=== PATIENT | female | born 1960 | race Caucasian/White ===

== ENCOUNTER 2022-06-07 20:26 | Emergency (ER) | payer MEDICAID ==
[~2022-06-07] VITALS: Ht 154.9 cm; Wt 55.0 kg
[2022-06-07] MEDS ORDERED: KETOROLAC 30MG/ML VIAL IV STA (21:53)
[2022-06-07] MEDS ORDERED: ONDANSETRON HCL 4MG/2ML INJ IV STA (21:53)
[2022-06-07 22:50] LABS: BASOPHILS % 1.3 % (0.0-2.0); EOSINOPHILS % 1.7 % (0.0-5.0); HEMATOCRIT. 25.9 % (36.0-48.0); HEMOGLOBIN. 8.9 g/dL (12.0-16.0); LYMPHOCYTES % 22.1 % (20.0-50.0); MEAN CORPUSCULAR VOLUME 93.4 fL (81.0-99.0); MEAN PLATELET VOLUME 9.5 fl (7.4-10.4); NEUTROPHILS % 67.9 % (40.0-76.0); PLATELET 492 x1000/uL (130-400); RED BLOOD CELL COUNT 2.78 mill/uL (4.2-5.4); RED CELL DISTRIBUTION WIDTH 13.8 % (11.6-14.6)
[2022-06-07 22:59] LABS: INR 0.9; PROTHROMBIN TIME 10.2 sec (9.6-11.0)
[2022-06-07 23:11] LABS: CHLORIDE 103 mEq/L (98-107)
[2022-06-08] MEDS ORDERED: PIPERACILLIN/TAZOBACTAM 3.375GM/50ML PREMIX IV NR (04:15)
[2022-06-08] MEDS ORDERED: ONDA4TAB50 MT (04:24)
[2022-06-08] MEDS ORDERED: CEPH500C2 MT (04:24)
[2022-06-08] MEDS ORDERED: IOHEXOL-300 100 ML BOTTLE ONE (06:02)
[2022-06-08 06:15] VITALS: BP 131/72
== END 2022-06-08 06:42 | disposition home or self-care (01) ==
LOC: ER 20:26
DX: R10.31 Right lower quadrant pain (principal); R11.2 Nausea with vomiting, unspecified; E11.9 Type 2 diabetes mellitus without complications; E78.00 Pure hypercholesterolemia, unspecified; I10 Essential (primary) hypertension
CPT/HCPCS: 36415; 74177; 80053; 83690; 85025; 85610; 96365; 96375; 99285; J1885; J2405; J2543; Q9967

== ENCOUNTER 2023-02-01 10:56 | Inpatient (IN) | payer MEDICAID ==
[~2023-02-01] VITALS: Ht 152.4 cm; Wt 60.1 kg
[~2023-02-01 10:56] MED LIST: CEPH500C2 MT; ONDA4TAB50 MT
[2023-02-01 11:52] LABS: HEMATOCRIT. 29.8 % (36.0-48.0); HEMOGLOBIN. 9.9 g/dL (12.0-16.0); MEAN CORPUSCULAR HEMOGLOBIN 31.6 pg (28.0-32.0); MEAN CORPUSCULAR HGB CONC 33.3 g/dL (31.0-37.0); MEAN CORPUSCULAR VOLUME 94.8 fL (81.0-99.0); MEAN PLATELET VOLUME 9.7 fl (7.4-10.4); PLATELET 269 x1000/uL (130-400); RED BLOOD CELL COUNT 3.15 mill/uL (4.2-5.4); RED CELL DISTRIBUTION WIDTH 12.7 % (11.6-14.6); WHITE BLOOD COUNT 15.5 x1000/uL (4.5-11.0)
[2023-02-01 11:54] LABS: DIFFERENTIAL COMMENT 1
[2023-02-01 12:08] LABS: CLARITY URINE CLOUDY (CLEAR); COLOR URINE YELLOW (YELLOW); GLUCOSE URINE 3+ (NEGATIVE); KETONES URINE NEGATIVE (NEGATIVE); LEUKOCYTE ESTERASE URINE 1+ (NEGATIVE); NITRITE URINE NEGATIVE (NEGATIVE); OCCULT BLOOD URINE NEGATIVE (NEGATIVE); PROTEIN URINE 3+ (NEGATIVE); SPECIFIC GRAVITY URINE 1.018 (1.005-1.030); UROBILINOGEN URINE 0.2 E.U./dL (0.2-1.0)
[2023-02-01 12:30] LABS: ALBUMIN 3.2 g/dL (3.4-5.0); CALCIUM 9.3 mg/dL (8.5-10.1); CARBON DIOXIDE 19 mEq/L (21-32); CHLORIDE 108 mEq/L (98-107); GLUCOSE 109 mg/dL (70-105); INDEX HEMOLYSI 1 (1-3); INDEX ICTERIC 1 (1-4); INDEX LIPEMIC 1 (1-3); POTASSIUM 4.8 mEq/L (3.5-5.1); SODIUM 137 mEq/L (136-145); UREA NITROGEN BLOOD 56 mg/dL (7-21)
[2023-02-01 12:31] LABS: SQUAMOUS EPITHELIAL CELL URINE FEW /lpf (RARE/1+)
[2023-02-01 12:32] LABS: RBC URINE 0-2 /hpf (0-2)
[2023-02-01 12:33] LABS: BACTERIA URINE TRACE
[2023-02-01 12:35] LABS: ALANINE AMINOTRANSFERASE 14 IU/L (13-61); ASPARTATE AMINOTRANSFERASE 13 IU/L (15-37); BILIRUBIN TOTAL 0.5 mg/dL (0.1-1.0); CREATININE 2.6 mg/dL (0.6-1.3); PROTEIN TOTAL 7.6 g/dL (6.0-8.3)
[2023-02-01] MEDS ORDERED: ONDANSETRON HCL 4MG/2ML INJ IV STA (12:49)
[2023-02-01] MEDS ORDERED: MORPHINE SULFATE 4 MG/ML CPJ (NOT FOR IM USE) IV STA (12:49)
[2023-02-01] MEDS ORDERED: SODIUM CHLORIDE 0.9% 1,000 ML IV ONE (13:00)
[2023-02-01 14:14] LABS: PLATELET ESTIMATE NORMAL
[2023-02-01] MEDS ORDERED: PIPERACILLIN/TAZ 3.375G PREMIX 50 ML IV ONE (15:00)
[2023-02-01 22:00] VITALS: BP 95/54; PULSE 89; RESP 19; TEMP 97.2
[2023-02-01] MEDS ORDERED: ATOR40TA70 MT (23:00)
[2023-02-01] MEDS ORDERED: AMLO10TA80 MT (23:00)
[2023-02-01] MEDS ORDERED: LISI40TA13 MT (23:00)
[2023-02-01] MEDS ORDERED: METF-416 MT (23:00)
[2023-02-01] MEDS ORDERED: GABA-580 PO (23:00)
[2023-02-01] MEDS ORDERED: FOLI-43 MT (23:01)
[2023-02-01] MEDS ORDERED: TOPUD MT (23:01)
[2023-02-01] MEDS ORDERED: ONDANSETRON HCL 4MG/2ML INJ IV PRN (23:30)
[2023-02-01] MEDS ORDERED: NALOXONE HCL 0.4MG/ML VIAL IV PRN (23:30)
[2023-02-02] VITALS (7 sets, daily range): BP systolic 90–125; BP diastolic 41–58; PULSE 83–95; RESP 18–22; TEMP 97.4–98.6
[2023-02-02] MEDS: MORPHINE SULFATE 2 MG/ML CPJ (NOT FOR IM USE) IV PRN ×3 (00:14→13:31)
[2023-02-02] MEDS: INSULIN LISPRO 100 UNITS/ML SUBCUT SCH ×5 (00:30→23:34)
[2023-02-02] MEDS: BLOOD SUGAR DIAGNOSTIC STRIP TEST SCH ×5 (00:30→23:34)
[2023-02-02] MEDS: SODIUM CHLORIDE 0.9% 1,000 ML IV SCH ×3 (00:30→20:27)
[2023-02-02] MEDS ORDERED: DEXTROSE 50% WATER 50ML SYRINGE IV PRN (00:30)
[2023-02-02 06:56] LABS: HEMATOCRIT 27.2 % (36.0-48.0); MEAN CORPUSCULAR HEMOGLOBIN 31.4 pg (28.0-32.0); MEAN CORPUSCULAR HGB CONC 33.2 g/dL (31.0-37.0); MEAN CORPUSCULAR VOLUME 94.4 fL (81.0-99.0); PLATELET 153 x1000/uL (130-400); RED BLOOD CELL COUNT 2.88 mill/uL (4.2-5.4); WHITE BLOOD COUNT 17.9 x1000/uL (4.5-11.0)
[2023-02-02 07:13] LABS: CHLORIDE 107 mEq/L (98-107); INDEX HEMOLYSI 1 (1-3); INDEX ICTERIC 1 (1-4); INDEX LIPEMIC 1 (1-3); POTASSIUM 4.8 mEq/L (3.5-5.1); SODIUM 138 mEq/L (136-145)
[2023-02-02 07:28] LABS: ALANINE AMINOTRANSFERASE 32 IU/L (13-61); ALBUMIN 2.4 g/dL (3.4-5.0); AMYLASE 31 IU/L (25-115); ASPARTATE AMINOTRANSFERASE 39 IU/L (15-37); BILIRUBIN TOTAL 0.5 mg/dL (0.1-1.0); CALCIUM 8.3 mg/dL (8.5-10.1); CARBON DIOXIDE 16 mEq/L (21-32); CREATININE 3.5 mg/dL (0.6-1.3); GLUCOSE 163 mg/dL (70-105); PROTEIN TOTAL 6.1 g/dL (6.0-8.3); UREA NITROGEN BLOOD 76 mg/dL (7-21)
[2023-02-02] MEDS ORDERED: BLOOD SUGAR DIAGNOSTIC STRIP TEST SCH (07:40)
[2023-02-02] MEDS ORDERED: INSULIN LISPRO 100 UNITS/ML SUBCUT SCH (08:10)
[2023-02-02] MEDS: PANTOPRAZOLE SODIUM 40 MG/VIAL IV SCH (09:30)
[2023-02-02] MEDS: PIPERACILLIN/TAZOBACTAM 3.375 G in DEXTROSE 5% WATER 50 ML IV SCH ×2 (09:30→20:26)
[2023-02-02 13:26] LABS: INR 0.9; PARTIAL THROMBOPLASTIN TIME 31.5 sec (23.4-31.0); PROTHROMBIN TIME 9.8 sec (9.6-11.0)
[2023-02-02] MEDS ORDERED: HYDROCODONE/ACETAMINOPHEN 5/325MG TABLET PO PRN (13:30)
[2023-02-03] VITALS (15 sets, daily range): BP systolic 115–186; BP diastolic 52–107; PULSE 80–92; RESP 12–20; TEMP 97.7–100
[2023-02-03] MEDS: MORPHINE SULFATE 2 MG/ML CPJ (NOT FOR IM USE) IV PRN ×2 (03:09→07:18)
[2023-02-03] MEDS: BLOOD SUGAR DIAGNOSTIC STRIP TEST SCH ×3 (05:36→17:43)
[2023-02-03] MEDS: INSULIN LISPRO 100 UNITS/ML SUBCUT SCH ×3 (05:36→17:42)
[2023-02-03] MEDS: SODIUM CHLORIDE 0.9% 1,000 ML IV SCH ×2 (05:36→16:31)
[2023-02-03] MEDS: PIPERACILLIN/TAZOBACTAM 3.375 G in DEXTROSE 5% WATER 50 ML IV SCH ×2 (08:29→22:49)
[2023-02-03] MEDS: PANTOPRAZOLE SODIUM 40 MG/VIAL IV SCH (08:29)
[2023-02-03 08:33] LABS: POTASSIUM 4.5 mEq/L (3.5-5.1)
[2023-02-03] MEDS ORDERED: LIDOCAINE HCL 1% 10 MG/ML 10ML VIAL ONE (08:44)
[2023-02-03] MEDS ORDERED: IOHEXOL-300 50 ML BOTTLE IV ONE (08:44)
[2023-02-03] MEDS ORDERED: FENTANYL CITRATE/PF 50MCG/ML 2ML VIAL IV ONE (09:20)
[2023-02-03] MEDS ORDERED: FENTANYL CITRATE/PF 50MCG/ML 2ML VIAL ONE (09:28)
[2023-02-03 09:29] LABS: BASOPHILS % 0.6 % (0.0-2.0); EOSINOPHILS % 3.6 % (0.0-5.0); HEMATOCRIT. 26.8 % (36.0-48.0); HEMOGLOBIN. 8.7 g/dL (12.0-16.0); LYMPHOCYTES % 9.4 % (20.0-50.0); MEAN CORPUSCULAR HEMOGLOBIN 31.2 pg (28.0-32.0); MEAN CORPUSCULAR HGB CONC 32.3 g/dL (31.0-37.0); MEAN CORPUSCULAR VOLUME 96.6 fL (81.0-99.0); MONOCYTES % 4.7 % (2.0-8.0); NEUTROPHILS % 81.7 % (40.0-76.0); PLATELET 109 x1000/uL (130-400); RED BLOOD CELL COUNT 2.78 mill/uL (4.2-5.4); RED CELL DISTRIBUTION WIDTH 13.7 % (11.6-14.6); WHITE BLOOD COUNT 11.6 x1000/uL (4.5-11.0)
[2023-02-04] VITALS: BP 126/55; PULSE 86; RESP 19; TEMP 98.1
[2023-02-04] MEDS: INSULIN LISPRO 100 UNITS/ML SUBCUT SCH ×4 (00:30→17:45)
[2023-02-04] MEDS: BLOOD SUGAR DIAGNOSTIC STRIP TEST SCH ×4 (00:54→17:45)
[2023-02-04 02:00] VITALS: BP 126/58; PULSE 79; RESP 18; TEMP 97.8
[2023-02-04] MEDS: SODIUM CHLORIDE 0.9% 1,000 ML IV SCH ×3 (02:45→21:50)
[2023-02-04 06:41] LABS: BASOPHILS % 0.8 % (0.0-2.0); EOSINOPHILS % 5.7 % (0.0-5.0); HEMATOCRIT. 22.9 % (36.0-48.0); HEMOGLOBIN. 7.7 g/dL (12.0-16.0); LYMPHOCYTES % 10.9 % (20.0-50.0); MEAN CORPUSCULAR HGB CONC 33.9 g/dL (31.0-37.0); MEAN CORPUSCULAR VOLUME 94.6 fL (81.0-99.0); MEAN PLATELET VOLUME 9.4 fl (7.4-10.4); MONOCYTES % 6.3 % (2.0-8.0); NEUTROPHILS % 76.3 % (40.0-76.0); PLATELET 104 x1000/uL (130-400); RED BLOOD CELL COUNT 2.42 mill/uL (4.2-5.4); RED CELL DISTRIBUTION WIDTH 12.6 % (11.6-14.6); WHITE BLOOD COUNT 8.9 x1000/uL (4.5-11.0)
[2023-02-04 08:00] VITALS: BP 152/68; PULSE 84; RESP 18; TEMP 98
[2023-02-04 08:26] LABS: CHLORIDE 114 mEq/L (98-107); INDEX HEMOLYSI 1 (1-3); INDEX ICTERIC 1 (1-4); INDEX LIPEMIC 1 (1-3); POTASSIUM 4.1 mEq/L (3.5-5.1); SODIUM 139 mEq/L (136-145)
[2023-02-04 08:33] LABS: ALANINE AMINOTRANSFERASE 21 IU/L (13-61); ASPARTATE AMINOTRANSFERASE 27 IU/L (15-37); BILIRUBIN TOTAL 0.4 mg/dL (0.1-1.0); CARBON DIOXIDE 17 mEq/L (21-32); CREATINE KINASE 87 IU/L (26-192); CREATININE 3.6 mg/dL (0.6-1.3); GLUCOSE 87 mg/dL (70-105); PHOSPHORUS 5.3 mg/dL (2.5-4.9); PROTEIN TOTAL 5.8 g/dL (6.0-8.3); UREA NITROGEN BLOOD 65 mg/dL (7-21)
[2023-02-04] MEDS: PIPERACILLIN/TAZOBACTAM 3.375 G in DEXTROSE 5% WATER 50 ML IV SCH ×2 (08:50→21:31)
[2023-02-04] MEDS: PANTOPRAZOLE SODIUM 40 MG/VIAL IV SCH (08:50)
[2023-02-04 12:00] VITALS: BP 151/62; PULSE 74; RESP 20; TEMP 97.7
[2023-02-04 16:00] VITALS: BP 154/64; PULSE 79; RESP 18; TEMP 98
[2023-02-04] MEDS: MORPHINE SULFATE 2 MG/ML CPJ (NOT FOR IM USE) IV PRN (16:27)
[2023-02-04] MEDS: DOCUSATE SODIUM 250MG CAPSULE PO SCH (19:15)
[2023-02-04 20:00] VITALS: BP 150/66; PULSE 78; RESP 18; TEMP 98.1
[2023-02-05] VITALS: BP 161/76; PULSE 83; RESP 18; TEMP 98.9
[2023-02-05] MEDS: INSULIN LISPRO 100 UNITS/ML SUBCUT SCH ×2 (00:30→06:30)
[2023-02-05] MEDS: BLOOD SUGAR DIAGNOSTIC STRIP TEST SCH ×2 (00:30→06:30)
[2023-02-05 04:00] VITALS: BP 166/74; PULSE 80; RESP 18; TEMP 98.4
[2023-02-05 06:53] LABS: EOSINOPHILS % 7.2 % (0.0-5.0); HEMATOCRIT. 24.8 % (36.0-48.0); HEMOGLOBIN. 8.4 g/dL (12.0-16.0); LYMPHOCYTES % 12.5 % (20.0-50.0); MEAN CORPUSCULAR HEMOGLOBIN 31.8 pg (28.0-32.0); MEAN CORPUSCULAR HGB CONC 33.9 g/dL (31.0-37.0); MEAN PLATELET VOLUME 9.6 fl (7.4-10.4); NEUTROPHILS % 72.3 % (40.0-76.0); PLATELET 117 x1000/uL (130-400); RED BLOOD CELL COUNT 2.64 mill/uL (4.2-5.4); RED CELL DISTRIBUTION WIDTH 12.8 % (11.6-14.6); WHITE BLOOD COUNT 8.6 x1000/uL (4.5-11.0)
[2023-02-05 07:54] LABS: CHLORIDE 113 mEq/L (98-107); INDEX HEMOLYSI 1 (1-3); INDEX ICTERIC 1 (1-4); INDEX LIPEMIC 1 (1-3); SODIUM 137 mEq/L (136-145)
[2023-02-05 08:00] VITALS: BP 159/64; PULSE 83; RESP 18; TEMP 97.2
[2023-02-05 08:09] LABS: ALANINE AMINOTRANSFERASE 17 IU/L (13-61); ALBUMIN 2.1 g/dL (3.4-5.0); ASPARTATE AMINOTRANSFERASE 23 IU/L (15-37); BILIRUBIN TOTAL 0.6 mg/dL (0.1-1.0); CALCIUM 7.7 mg/dL (8.5-10.1); CARBON DIOXIDE 17 mEq/L (21-32); CREATININE 2.9 mg/dL (0.6-1.3); GLUCOSE 78 mg/dL (70-105); PHOSPHORUS 4.1 mg/dL (2.5-4.9); PROTEIN TOTAL 6.2 g/dL (6.0-8.3); UREA NITROGEN BLOOD 50 mg/dL (7-21)
[2023-02-05] MEDS: DOCUSATE SODIUM 250MG CAPSULE PO SCH (09:00)
[2023-02-05] MEDS: PIPERACILLIN/TAZOBACTAM 3.375 G in DEXTROSE 5% WATER 50 ML IV SCH (09:30)
[2023-02-05] MEDS: PANTOPRAZOLE SODIUM 40 MG/VIAL IV SCH (09:30)
[2023-02-05] MEDS: SODIUM CHLORIDE 0.9% 1,000 ML IV SCH (09:40)
[2023-02-05] MEDS ORDERED: LEVO250T74 MT (11:14)
[2023-02-05] MEDS ORDERED: LACTULOSE 20G/30ML UDC PO NR (11:30)
[2023-02-05 12:00] VITALS: BP 149/65; PULSE 80; RESP 18; TEMP 97.6
[2023-02-05 14:35] VITALS: BP 141/64; PULSE 83; TEMP 97.9; O2SAT 100
== END 2023-02-05 15:30 | disposition home or self-care (01) | DRG 720 ==
LOC: ER 10:56 → 7WST 23:16
PROVIDERS: ADMIT Internal Medicine; ATTEND Internal Medicine
DX: A41.9 Sepsis, unspecified organism (principal); N17.0 Acute kidney failure with tubular necrosis; E87.20 Acidosis, unspecified; K80.00 Calculus of gallbladder with acute cholecystitis without obstruction; E44.1 Mild protein-calorie malnutrition; D69.6 Thrombocytopenia, unspecified; R65.20 Severe sepsis without septic shock; E11.9 Type 2 diabetes mellitus without complications; D64.9 Anemia, unspecified; I12.9 Hypertensive chronic kidney disease with stage 1 through stage 4 chronic kidney disease, or unspecified chronic kidney disease; N18.9 Chronic kidney disease, unspecified; Z86.73 Personal history of transient ischemic attack (TIA), and cerebral infarction without residual deficits; E11.22 Type 2 diabetes mellitus with diabetic chronic kidney disease; E78.00 Pure hypercholesterolemia, unspecified; Z82.49 Family history of ischemic heart disease and other diseases of the circulatory system; Z68.25 Body mass index [BMI] 25.0-25.9, adult
CPT/HCPCS: 36415; 47490; 71045; 74176; 76705; 80048; 80053; 81003; 82150; 82550; 82570; 82962; 83036; 83735; 84100; 84156; 85025; 85027; 93005; 97162; 97530; 99152; 99153; 99285; C1729; C1769; C9113; J2270; J2405; J2543; J3010; J3490; J7030; J7060; Q9967; A4315; G0500

== ENCOUNTER 2023-05-10 11:36 | Emergency (ER) | payer OTHER ==
[~2023-05-10] VITALS: Ht 152.4 cm; Wt 57.0 kg
[~2023-05-10 11:36] MED LIST changes: +AMLO10TA80 MT; +ATOR40TA70 MT; -CEPH500C2 MT; +FOLI-43 MT; +GABA-580 PO; +HYDR-4001 MT; +LEVO-65 MT; +LISI40TA13 MT; -ONDA4TAB50 MT; +TOPUD MT; +TRAM50TA3 MT
[2023-05-10 11:47] VITALS: TEMP 97.9; O2SAT 100
[2023-05-10 12:44] LABS: BASOPHILS % 1.1 % (0.0-2.0); EOSINOPHILS % 4.9 % (0.0-5.0); HEMATOCRIT. 31.6 % (36.0-48.0); HEMOGLOBIN. 10.4 g/dL (12.0-16.0); LYMPHOCYTES % 24.2 % (20.0-50.0); MEAN CORPUSCULAR HEMOGLOBIN 32.1 pg (28.0-32.0); MEAN CORPUSCULAR HGB CONC 32.9 g/dL (31.0-37.0); MEAN CORPUSCULAR VOLUME 97.6 fL (81.0-99.0); MEAN PLATELET VOLUME 9.1 fl (7.4-10.4); MONOCYTES % 5.8 % (2.0-8.0); PLATELET 283 x1000/uL (130-400); RED BLOOD CELL COUNT 3.24 mill/uL (4.2-5.4); RED CELL DISTRIBUTION WIDTH 13.9 % (11.6-14.6); WHITE BLOOD COUNT 8.2 x1000/uL (4.5-11.0)
[2023-05-10 13:13] LABS: ALANINE AMINOTRANSFERASE < 7 IU/L (10-49); ALBUMIN 4.3 g/dL (3.2-4.8); ASPARTATE AMINOTRANSFERASE 15 IU/L (<34); BILIRUBIN TOTAL 0.4 mg/dL (0.1-1.0); CALCIUM 9.5 mg/dL (8.7-10.4); CARBON DIOXIDE 23 mEq/L (21-32); CHLORIDE 106 mEq/L (98-107); CREATININE 2.1 mg/dL (0.6-1.0); GLUCOSE 186 mg/dL (70-105); POTASSIUM 4.3 mEq/L (3.5-5.1); PROTEIN TOTAL 7.1 g/dL (6.0-8.3); SODIUM 138 mEq/L (136-145); UREA NITROGEN BLOOD 36 mg/dL (9-23)
[2023-05-10] MEDS ORDERED: HYDROCODONE/ACETAMINOPHEN 10/325MG TABLET PO ONE ×2 (15:30→21:30)
[2023-05-10] MEDS ORDERED: KETOROLAC 60MG/2ML VIAL IM ONE (15:30)
[2023-05-10 16:07] VITALS: BP 172/66; PULSE 84; RESP 18
[2023-05-10] MEDS ORDERED: LACTULOSE 20G/30ML UDC PO ONE (20:45)
[2023-05-10] MEDS ORDERED: POLY17PO3 MT (20:49)
[2023-05-10] MEDS ORDERED: IBUP-2030 MT (20:49)
[2023-05-10] MEDS ORDERED: IBUPROFEN 600MG TABLET PO ONE (21:30)
== END 2023-05-10 21:38 | disposition home or self-care (01) ==
LOC: ER 11:36
DX: R10.11 Right upper quadrant pain (principal); E11.9 Type 2 diabetes mellitus without complications; E78.00 Pure hypercholesterolemia, unspecified; I10 Essential (primary) hypertension; Z79.899 Other long term (current) drug therapy
CPT/HCPCS: 80053; 85025; 36415; 74176; 96372; 99285; J1885; Z7610

== ENCOUNTER 2023-10-25 13:32 | Emergency (ER) | payer OTHER ==
[~2023-10-25] VITALS: Ht 152.4 cm; Wt 59.0 kg
[~2023-10-25 13:32] MED LIST changes: +IBUP-2030 MT; +POLY17PO3 MT
[2023-10-25 13:53] VITALS: O2SAT 100
[2023-10-25 15:59] LABS: BASOPHILS % 1.2 % (0.0-2.0); EOSINOPHILS % 8.5 % (0.0-5.0); HEMATOCRIT. 32.1 % (36.0-48.0); HEMOGLOBIN. 10.6 g/dL (12.0-16.0); LYMPHOCYTES % 24.6 % (20.0-50.0); MEAN CORPUSCULAR HEMOGLOBIN 31.5 pg (28.0-32.0); MEAN CORPUSCULAR HGB CONC 32.9 g/dL (31.0-37.0); MEAN CORPUSCULAR VOLUME 95.6 fL (81.0-99.0); MEAN PLATELET VOLUME 9.3 fl (7.4-10.4); MONOCYTES % 6.7 % (2.0-8.0); PLATELET 284 x1000/uL (130-400); RED BLOOD CELL COUNT 3.36 mill/uL (4.2-5.4); RED CELL DISTRIBUTION WIDTH 13.2 % (11.6-14.6)
[2023-10-25 16:01] LABS: CARBON DIOXIDE 25 mEq/L (21-32); CHLORIDE 112 mEq/L (98-107); POTASSIUM 4.6 mEq/L (3.5-5.1); SODIUM 142 mEq/L (136-145)
[2023-10-25 16:02] LABS: CALCIUM 9.9 mg/dL (8.7-10.4)
[2023-10-25 16:07] LABS: CREATININE 2.1 mg/dL (0.6-1.0); GLUCOSE 125 mg/dL (70-105); UREA NITROGEN BLOOD 35 mg/dL (9-23)
[2023-10-25 16:08] LABS: ALANINE AMINOTRANSFERASE 30 IU/L (10-49); ASPARTATE AMINOTRANSFERASE 23 IU/L (<34)
[2023-10-25 16:09] LABS: ALBUMIN 4.4 g/dL (3.2-4.8); BILIRUBIN TOTAL < 0.2 mg/dL (0.1-1.0); PROTEIN TOTAL 7.6 g/dL (6.0-8.3)
[2023-10-25 16:20] LABS: BILIRUBIN DIRECT < 0.1 mg/dL (<=3.0)
[2023-10-25 16:23] VITALS: BP 131/67; PULSE 89; RESP 16; TEMP 98.1
== END 2023-10-25 16:24 | disposition home or self-care (01) ==
LOC: ER 13:32 → CANBEDREQ 10-26 21:09
DX: R68.89 Other general symptoms and signs (principal); E11.9 Type 2 diabetes mellitus without complications; E78.00 Pure hypercholesterolemia, unspecified; I10 Essential (primary) hypertension; Z79.899 Other long term (current) drug therapy
CPT/HCPCS: 36415; 80048; 80076; 85025; 99283

== ENCOUNTER 2023-10-26 23:07 | Emergency (ER) | payer OTHER ==
[~2023-10-26] VITALS: Ht 152.4 cm; Wt 54.5 kg
[2023-10-26 23:50] VITALS: TEMP 97.9; O2SAT 100
[2023-10-27 00:34] VITALS: BP 148/75; RESP 14
[2023-10-27 00:42] VITALS: PULSE 92
[2023-10-27] MEDS: HYDROCODONE/ACETAMINOPHEN 10/325MG TABLET PO NR (00:42)
== END 2023-10-27 00:43 | disposition home or self-care (01) ==
LOC: ER 23:18
DX: T83.028A Displacement of other urinary catheter, initial encounter (principal); E11.9 Type 2 diabetes mellitus without complications; E78.00 Pure hypercholesterolemia, unspecified; I10 Essential (primary) hypertension; Z79.899 Other long term (current) drug therapy; X58.XXXA Exposure to other specified factors, initial encounter
CPT/HCPCS: 99283